=== PATIENT | male | born 1960 | race Caucasian/White ===

== ENCOUNTER → 2017-11-04 07:22 | Outpatient (CLI) | payer BC, SELFPAY ==
[2017-11-04 08:37] LABS: AST(SGOT) 37 U/L (15-37); Alanine Aminotransfer ALT/SGPT 91 U/L (16-61); Albumin, Serum 3.9 g/dL (3.2-5.0); Alkaline Phosphatase 52 U/L (45-117); Bilirubin, Direct 0.16 mg/dL (0.00-0.30); Cholesterol 135 mg/dL (200); Globulin 3.4 g/dL (2.2-4.2); High Density Lipoprotein 38 mg/dL; Protein, Total 7.3 g/dL (6.4-8.2); Triglycerides 155 mg/dL; Very Low Density Lipoprotein 31 mg/dL (5-40)
== END ==
PROVIDERS: Family Provider Family Medicine; PCP Family Medicine; Visit Provider Physician Assistant Medical
DX: E78.5 Hyperlipidemia, unspecified (principal); Z79.899 Other long term (current) drug therapy
CPT/HCPCS: 36415; 80061; 80076

== ENCOUNTER → 2017-12-13 11:07 | Outpatient (CLI) | payer BC, SELFPAY ==
[2017-12-13 12:24] LABS: Absolute Neutrophil Count 4.4 X10^3/uL (2.0-7.7); Basophil# 0.04 X10^3/uL; Basophil% 0.5 % (0-1); Eosinophil# 0.06 X10^3/uL; Eosinophils% 0.8 % (0-5); Hematocrit 45.6 % (40-54); Hemoglobin 16.2 g/dl (13.0-16.5); Lymphocyte % 32.4 % (19-41); Mean Corp Hgb Conc 35.5 g/gl (32-36); Mean Corpuscular Hgb 32.3 pg (27.0-32.0); Mean Platelet Vol. 10.5 fl (6.2-12.0); Monocyte# 0.71 X10^3/uL; Monocyte% 9.2 % (0-10); Neutrophil # 4.38 X10^3/uL (2.7-7.7); Neutrophil % 56.8 % (47-70); Platelet Count 205 K/mm3 (150-450); RBC Distribution Width CV 12.6 % (11.6-14.6); Red Blood Count 5.01 M/mm3 (4.6-6.2); White Blood Count 7.7 K/mm3 (4.4-11.0)
[2017-12-13 12:26] LABS: POSITIVE COUNT NO; POSITIVE DIFFERENTIAL NO; POSITIVE MORPHOLOGY NO
[2017-12-13 12:37] LABS: Anion Gap 3 (5-15); BUN 22 mg/dL (7-18); BUN/Creat Ratio 19.5 RATIO (10-20); Chloride 106 mmol/L (98-107); Creatinine, Serum 1.13 mg/dL (0.70-1.30); EST Glomerular Filtration Rate 71 mL/min (>60); Est Glom Filt Rate - Afr Amer 86 mL/min (>60); Glucose 106 mg/dL (74-106); Potassium 3.8 mmol/L (3.5-5.1); Sodium Level 138 mmol/L (136-145)
[2017-12-19 14:07] LABS: QNTFERON TB Ag Minus Nil Value 0.07 IU/mL (.); QNTFERON TB Ag Value 0.11 IU/mL (.); QNTFERON TB Mitogen Value > 10.00 IU/mL (.); QNTFERON TB Nil Value 0.04 IU/mL (.)
[2017-12-20 09:01] LABS: QNTIFERON TB Gold Negative (Negative)
== END ==
PROVIDERS: Family Provider Family Medicine; PCP Family Medicine; Visit Provider Physician Assistant
DX: L40.0 Psoriasis vulgaris (principal); D48.5 Neoplasm of uncertain behavior of skin; L57.0 Actinic keratosis; Z79.899 Other long term (current) drug therapy
CPT/HCPCS: 36415; 80048; 85025; 86480

== ENCOUNTER → 2018-06-12 08:44 | Outpatient (CLI) | payer BC, SELFPAY ==
[2018-06-12 10:06] LABS: Hematocrit 47.8 % (40-54); Hemoglobin 16.7 g/dl (13.0-16.5); Mean Corp Hgb Conc 34.9 g/gl (32-36); Mean Corpuscular Hgb 31.9 pg (27.0-32.0); Mean Corpuscular Volume 91.4 fL (80-94); Mean Platelet Vol. 9.9 fl (6.2-12.0); Platelet Count 208 K/mm3 (150-450); RBC Distribution Width CV 12.8 % (11.6-14.6); RBC Distribution Width SD 42.3 fl (35.1-43.9); Red Blood Count 5.23 M/mm3 (4.6-6.2); Scan Indicated on CBC? Y/N NO; White Blood Count 7.8 K/mm3 (4.4-11.0)
[2018-06-12 10:19] LABS: ALB/GLOB Ratio 1.1 RATIO (0.9-2.4); AST(SGOT) 42 U/L (15-37); Alanine Aminotransfer ALT/SGPT 124 U/L (16-61); Albumin, Serum 3.8 g/dL (3.2-5.0); Alkaline Phosphatase 53 U/L (45-117); Anion Gap 8 (5-15); BUN 19 mg/dL (7-18); BUN/Creat Ratio 17.9 RATIO (10-20); Calcium,Total 9.2 mg/dL (8.5-10.1); Chloride 105 mmol/L (98-107); Creatinine, Serum 1.06 mg/dL (0.70-1.30); EST Glomerular Filtration Rate 76 mL/min (>60); Est Glom Filt Rate - Afr Amer 92 mL/min (>60); Globulin 3.4 g/dL (2.2-4.2); Glucose 106 mg/dL (74-106); Potassium 4.2 mmol/L (3.5-5.1); Protein, Total 7.2 g/dL (6.4-8.2); Sodium Level 142 mmol/L (136-145)
--- OUTSIDE RECORDS SUMMARY | 2018-08-14 15:54 | XMS RPT_ITS ---
:1960 Author Organization OH[facility] Care Team Providers Name Role Phone CRISTIAN QUIROS, DR. LEHMAN Attending Unavailable JANINA QUIROS, DR. DARLYN Melchor Primary Care Unavailable Arlin Canela Attending Unavailable Arlin Canela Referring Unavailable Darlyn Rivas Primary Care Unavailable Leonie Laughlin Attending Unavailable Leonie Laughlin Referring Unavailable Darlyn Rivas Primary Care Unavailable Joshua Duarte Attending Unavailable Darlyn Rivas Referring Unavailable Darlyn Rivas Primary Care Unavailable Arlin Canela Attending Unavailable Arlin Canela Referring Unavailable Darlyn Rivas Primary Care Unavailable PROBLEMS PROBLEMS DATE TYPE CONDITION / CODE ATTENDING STATUS SOURCE 12/13/2017 Unknown L40.0 - Psoriasis Arlin Canela Active Danica vulgaris / Community L40.0(ICD-10) Hospital Repository 11/08/2017 Unknown E78.5 - Laughlin, Active Danica HyperlipidemiaLeonie Community unspecified / Hospital E78.5(ICD-10) Repository PROCEDURES PROCEDURES No Procedure Records FoundRESULTS RESULTS CBC-COMPLETE BLOOD CNT Collected: 06/12/2018 Status: F Source: DANICA NO DIFF 8:50 AM [facility] REPOSITORY TYPE CODE TESTS RESULT OUT OF RANGE REFERENCE UNITS LAB L100.1000 4.4-11.0 K/mm3 Normal WBC 7.8 LAB L100.1200 4.6-6.2 M/mm3 Normal RBC 5.23 LAB L100.1300 13.0-16.5 g/dl High HGB 16.7 LAB L100.1400 40-54 % Normal HCT 47.8 LAB L100.1500 80-94 fL Normal MCV 91.4 LAB L100.1600 27.0-32.0 pg Normal MCH 31.9 LAB L100.1700 32-36 g/gl Normal MCHC 34.9 LAB L100.1810 11.6-14.6 % Normal RDW CV 12.8 LAB L100.1820 35.1-43.9 fl Normal RDW SD 42.3 LAB L100.1900 150-450 K/mm3 Normal PLT 208 LAB L100.2000 6.2-12.0 fl Normal MPV 9.9 Performed By: #### L100.0500 #### [facility] [place], [address] COMPREHENSIVE METABOLIC Collected: 06/12/2018 Status: F Source: DANICA PROFIL 8:50 AM [facility] REPOSITORY TYPE CODE TESTS RESULT OUT OF RANGE REFERENCE UNITS LAB L501.0100 74-106 mg/dL Normal GLU 106 Result Comment: Fasting Glucose result from 100 to 125 mg/dL suggests IMPAIRED HOMEOSTASIS per A.D.A. criteria. Please note revised GLUCOSE reference range effective 2017. LAB L501.1000 7-18 mg/dL High BUN 19 LAB L501.1100 0.70-1.30 mg/dL Normal CREAT,SERUM 1.06 Result Comment: The validity of the calculated GFR AND GFRAA in patients over 70 years has not been determined. Clinical correlation is essential. LAB L501.1110 >60 mL/min Normal EST GFR 76 Result Comment: Non- GFR Calc LAB L501.1115 >60 mL/min Normal EST GFR - AA 92 Result Comment: GFR Calc LAB L501.1300 10-20 RATIO Normal BUN/CRE 17.9 LAB L501.1500 6.4-8.2 g/dL T Normal PROT 7.2 LAB L501.1800 3.2-5.0 g/dL Normal ALB 3.8 LAB L501.1950 2.2-4.2 g/dL Normal GLOB 3.4 LAB L501.2000 0.9-2.4 RATIO Normal A/G 1.1 LAB L501.2200 8.5-10.1 mg/dL CA Normal 9.2 LAB L501.4100 15-37 U/L High AST 42 LAB L501.4305 45-117 U/L Normal ALK P 53 LAB L501.4405 16-61 U/L High ALT 124 LAB L501.4600 0.20-1.00 mg/dL T Normal BILI 0.60 LAB L501.5300 136-145 mmol/L NA Normal 142 LAB L501.5600 3.5-5.1 mmol/L K Normal 4.2 LAB L501.5900 98-107 mmol/L CL Normal 105 LAB L501.6100 21.0-32.0 mmol/L Normal CO2 29.0 LAB L501.6200 5-15 Normal GAP 8 Performed By: #### L500.4050 #### [facility] [address] [place], [address] CBC W/DIFF, AUTOMATED Collected: 12/13/2017 Status: F Source: MARSHALL 11:12 AM [facility] REPOSITORY TYPE CODE TESTS RESULT OUT OF RANGE REFERENCE UNITS LAB L100.1000 4.4-11.0 K/mm3 Normal WBC 7.7 LAB L100.1200 4.6-6.2 M/mm3 Normal RBC 5.01 LAB L100.1300 13.0-16.5 g/dl Normal HGB 16.2 LAB L100.1400 40-54 % Normal HCT 45.6 LAB L100.1500 80-94 fL Normal MCV 91.0 LAB L100.1600 27.0-32.0 pg High MCH 32.3 LAB L100.1700 32-36 g/gl Normal MCHC 35.5 LAB L100.1810 11.6-14.6 % Normal RDW CV 12.6 LAB L100.1820 35.1-43.9 fl Normal RDW SD 41.0 LAB L100.1900 150-450 K/mm3 Normal PLT 205 LAB L100.2000 6.2-12.0 fl Normal MPV 10.5 LAB L100.2100 47-70 % Normal NEUT% 56.8 LAB L100.2200 19-41 % Normal LY% 32.4 LAB L100.2300 0-10 % Normal MONO% 9.2 LAB L100.2400 0-5 % Normal EO% 0.8 LAB L100.2500 0-1 % Normal BASO% 0.5 LAB L100.2550 0.0-0.9 % Normal IM GRAN % 0.300 Result Comment: IG% - Immature Granulocytes (promyelocytes, myelocytes and metamyelocytes) > 1% indicates that a LEFT SHIFT is Present. LAB L100.2620 2.0-7.7 X10 3/uL Normal Absolute Neut 4.4 LAB L100.2720 0.83-4.51 X10 3/ul Normal Absolute Lymph 2.50 Performed By: #### L100.0100 #### [facility] [address] [place] [address]. [place], [address] BASIC METABOLIC Collected: 12/13/2017 Status: F Source: MARSHALL PROFILE (BMP) 11:12 AM [facility] REPOSITORY TYPE CODE TESTS RESULT OUT OF RANGE REFERENCE UNITS LAB L501.0100 74-106 mg/dL Normal GLU 106 Result Comment: Fasting Glucose result from 100 to 125 mg/dL suggests IMPAIRED HOMEOSTASIS per A.D.A. criteria. Please note revised GLUCOSE reference range effective 2017. LAB L501.1000 7-18 mg/dL High BUN 22 LAB L501.1100 0.70-1.30 mg/dL Normal CREAT,SERUM 1.13 Result Comment: The validity of the calculated GFR AND GFRAA in patients over 70 years has not been determined. Clinical correlation is essential. LAB L501.1110 >60 mL/min Normal EST GFR 71 Result Comment: Non- GFR Calc LAB L501.1115 >60 mL/min Normal EST GFR - AA 86 Result Comment: GFR Calc LAB L501.1300 10-20 RATIO Normal BUN/CRE 19.5 LAB L501.2200 8.5-10.1 mg/dL CA Normal 9.0 LAB L501.5300 136-145 mmol/L NA Normal 138 LAB L501.5600 3.5-5.1 mmol/L K Normal 3.8 Result Comment: Slight Hemolysis, Result may be falsely increased. LAB L501.5900 98-107 mmol/L Normal CL 106 LAB L501.6100 21.0-32.0 mmol/L Normal CO2 29.0 LAB L501.6200 5-15 Low 3 GAP Performed By: #### L500.2500 #### [facility] [address] [place], [address] QUANTIFERON TB-GOLD Collected: 12/13/2017 Status: F Source: MARSHALL 11:12 AM [facility] REPOSITORY TYPE CODE TESTS RESULT OUT OF RANGE REFERENCE UNITS LAB L3400.7025 Negative Normal QFT Negative TB GOLD Result Comment: The specimen received for QuantiFERON testing was incubated by the ordering institution. Specific procedures outlined in our Directory of Services and in the package insert for the QuantiFERON Gold (In Tube) test must be followed to enable for proper stimulation of cells for the production of interferon gamma. LAB L3400.7035 . Normal QFT TB Comment POS CRIT Result Comment: To be considered positive a specimen should have a TB Ag minus Nil value greater than or equal to 0.35 IU/mL and in addition the TB Ag minus Nil value must be greater than or equal to 25% of the Nil value. There may be insufficient information in these values to differentiate between some negative and some indeterminate test values. LAB L3400.7045 . IU/mL Normal QFT TB AB 0.11 VALUE LAB L3400.7055 . IU/mL Normal QFT NIL VALUE 0.04 LAB L3400.7065 . IU/mL > Normal QFT MITOGEN 10.00 VERONA LAB L3400.7075 . IU/mL Normal QFT AG - NIL 0.07 LAB L3400.7085 . Normal QFT TB INTER Comment Result Comment: The QuantiFERON TB Gold (in Tube) assay is intended for use as an aid in the diagnosis of TB infection. Negative results suggest that there is no TB infection. In patients with high suspicion of exposure, a negative test should be repeated. A positive test indicates infection with Mycobacterium tuberculosis. Among individuals without tuberculosis infection, a positive test may be due to exposure to M. kansasii, M. szulgai or M. marinum. On the Internet, go to cdc.gov/tb for further details. Performed at: [facility] [address] [id number] Senior Front End Developer: Deon Enriquez PhD, Phone: [phone] Performed By: #### L3001.7002 #### [facility] (refer to report for specific site) refer to report for address and phone number CARDIOLOGY VISIT Observed: 11/15/2017 Status: F Source: MARSHALL REPORT 1:44 PM [facility] REPOSITORY [facility] [address] [place] [address] OFFICE VISIT Date of Service: 11/15/17 MR#: [id number] Acct: [id number] Name: DYLON HERNANDEZ Rep #: [id number] : 1960 Provider: Joshua Duarte MD Age/Sex: 57/M Location: [facility] Status: Signed HPI HPI Chief Complaint: Follow-up visit. Details: DYLON HERNANDEZ, is a 57 M who presents to the office today for a follow-up visit. Is a gentleman with a history of coronary disease status post angioplasty and stenting of the diagonal vessel remotely 13 years ago. He returns for routine follow-up visit he continues to do remarkably well denying any chest pain or shortness breath or paroxysmal nocturnal dyspnea. He has not had any pedal edema is been compliant with his medications. His last stress test was in 2013 and at that time he exercised to a high metabolic workload of 11.7 metabolic equivalents with no evidence of angina. He denies any neck arm or jaw discomfort suggest angina. His physical exam today demonstrates clear lung duron regular rate and rhythm and no pedal edema. Intake Vital Signs11/15/17 Height 5 ft 8 in 11/15/17 Weight: 229 lb 11/15/17 Body Mass Index (BMI) 34.8 11/15/17 Blood Pressure 130/70 Intake Visit Reasons: 1 Y FU (pt r/s from -) [employer] Required: No Is patient in pain?: No Allergies methotrexate Adverse Reaction (Intermediate, Verified 11/15/17 13:27) Nausea Medications aspirin 81 mg tablet,delayed release 81 mg PO QDAY 05/25/17 [History Confirmed 11/15/17] clopidogrel 75 mg tablet 75 mg PO DAILY #90 tab 05/25/17 [Rx Confirmed 11/15/17] esomeprazole magnesium 40 mg capsule,delayed release 40 mg PO DAILY #90 cap 05/25/17 [Rx Confirmed 11/15/17] hydrochlorothiazide 25 mg tablet 25 mg PO DAILY #90 tab 05/25/17 [Rx Confirmed 11/15/17] isosorbide mononitrate ER 60 mg tablet,extended release 24 hr 60 mg PO DAILY #90 tab 05/25/17 [Rx Confirmed 11/15/17] losartan 100 mg tablet 100 mg PO DAILY #90 tab 05/25/17 [Rx Confirmed 11/15/17] metoprolol succinate ER 100 mg tablet,extended release 24 hr 100 mg PO DAILY #90 tab 05/25/17 [Rx Confirmed 11/15/17] multivitamin tablet 1 tab PO QDAY 05/25/17 [History Confirmed 11/15/17] simvastatin 40 mg tablet 40 mg PO QPM #90 tab 05/25/17 [Rx Confirmed 11/15/17] folic acid 1 mg tablet 1 mg PO QDAY #90 tab 05/27/17 [Rx Confirmed 11/15/17] adalimumab 40 mg/0.8 mL subcutaneous syringe kit 40 mg SC .COMPLEX ml 11/15/17 [History Confirmed 11/15/17] nitroglycerin 0.4 mg sublingual tablet 0.4 mg SUBLINGUAL Q5- 15M PRN #25 tab 11/15/17 [Rx Confirmed 11/15/17] [facility] Medical History Atherosclerotic heart disease of [place] coronary artery without angina pectoris (Chronic 2004) Psoriatic arthropathy (Chronic) Psoriasis (Chronic) Hyperlipidemia (Chronic) Hypertension (Chronic) Surgical History Stented coronary artery (Chronic) Family History Father , AGe 57 of [place] CAD (coronary artery disease) Hypertension Myocardial infarction S/P CABG (coronary artery bypass graft) Mother Hypertension Uncle , Age 32 from [place] Myocardial infarction CAD (coronary artery disease) PAD (peripheral artery disease) Uncle , Age 39 Colon cancer Diabetes Hypertension Lung cancer Myocardial infarction Aunt CAD (coronary artery disease) S/P coronary artery stent placement Grandfather , Age 57 CAD (coronary artery disease) Diabetes Hypertension Myocardial infarction Grandfather , 53 Cerebral hemorrhage Hypertension Grandmother , Age 86 CVA (cerebral vascular accident) Grandmother , Age 75 Myocardial infarction Hypertension Sudden cardiac Sister Hypertension Thyroid disorder Sister Eczema IBS (irritable bowel syndrome) Migraines Social History Smoking Status: Former smoker ROS Const Const: Negative for fatigue, weakness, body ache, fever(s), headache(s), chills, frequent falls, night sweats, daytime sleepiness, difficulty sleeping, excessive sweating, weight gain, weight loss, increased appetite, poor appetite, anorexia or other Eyes Eyes: Negative for blind spots, loss of peripheral vision, transient loss of vision, blurry vision, change in vision, double vision, floaters, tunnel vision or other ENT ENT: Negative for headache(s), dizziness, hearing loss, tinnitus, Nosebleed/epistaxis, balance problems, post nasal drip, lip swelling, tongue swelling, bleeding gums, hoarseness, neck pain, dry mouth or other Cardio Chest Pain: No Palpitations: No Edema: None Muscle aches with walking: None Resp Respiratory: Negative for SOB with activity, SOB at rest, SOB orthopnea\SOB lying down, Coughing up blood/hemoptysis, chest congestion, pain on inspiration, snoring, stridor, wheezing, crackles, paroxysmal nocturnal dyspnea or other GI GI: Negative nausea, vomiting, heartburn, constipation, belching, bloating, cramping, vomiting blood/hematemesis, bright, red blood in stools, black,tarry stools, loose stools, Difficulty Swallowing or other : Negative for hematuria, frequent nighttime urination/ nocturia, erectile dysfunction or abnormal vaginal bleeding Musc Musc: Negative for balance problems, muscle aches/ myalgia, muscle weakness or joint pain Skin Skin: Negative redness, non-healing lesions, rash, unusual bruising, skin ulcer, wounds, jaundice or other Neuro Neuro: Negative for weakness, headache(s), frequent falls, blurry vision, double vision, dizziness, lightheadedness, near syncope, syncope, orthostatic symptoms, confusion, memory loss, restless legs, vertigo, seizures, lack of coordination or other Jhonatan Hematologic/Lymphatic: Negative for easy bleeding, easy bruising, enlarged lymph nodes or other Endo Endo: Negative for fatigue, excessive sweating, cold intolerance, heat intolerance, flushing, increased thirst/drinking, increased hunger, hair loss, hair growth or other Psych Psych: Negative for anxiety, depression, thoughts of harming anyone, thoughts of harming yourself, visual hallucinations, panic attacks or audible hallucinations Allergy Allergy/Immunology: Negative for lip swelling, Negative for tongue swelling, Negative for rash, Negative for throat swelling, Negative for hives Cardiology Exam Const Appearance: cooperative, healthy appearing, well developed, well groomed and no acute distress Nutritional Appearance: well nourished and average body habitus Orientation: alert, awake and oriented x3 Head Head: normal to inspection, normocephalic and atraumatic Ears: hearing grossly normal bilaterally and external ears normal Nose: external nose normal, nasal mucous membranes and turbinates normal, nares normal, septum normal, no nasal discharge Face and Sinus: face symmetric Mouth: oral mucosae normal, tongue normal, oropharynx normal and moist mucous membranes Teeth and gingiva: dentition normal Throat: posterior oropharynx normal, tonsils normal and uvula midline Eyes General: appearance normal, both eyes and all related structures Eyelids: eyelids normal Conjunctivae: conjunctivae normal Pupils: PERRL, normal by confrontation and accommodation normal EOM: EOM intact bilaterally Neck Neck: normal visual inspection, trachea midline and no JVD JVD: +5 Carotids: normal carotid upstroke and bounding pulses Chest Chest inspection: normal inspection of the chest, symmetric chest movement and normal respiratory effort Auscultation: Bilateral: Clear to Auscultation Cardio Palpation: normal PMI Rate: regular rate Rhythm: regular rhythm Heart sounds: S1 normal, S2 normal and normal, physiologic split S2; negative rub, gallop or murmur GI GI: normal to inspection, soft, no hepatosplenomegaly and bowel sounds present Neuro General: alert, awake, oriented x3, no focal sensory deficit, gait normal and moves all extremities Skin Skin: no rashes or lesions noted Extremities Pulses: Normal: Right Femoral Pulse, Left Femoral Pulse, Right Dorsalis Pedis Pulse, Left Dorsalis Pedis Pulse, Right Posterior Tibial Pulse, Left Posterior Tibial Pulse, Right Radial Pulse, Left Radial Pulse Lower Extremity Edema: None: Bilateral Musculoskel Musculoskeletal: No joint tenderness Psych Psychological: normal affect Assessment AND Plan 1. Atherosclerosis of [place] coronary artery of [place] heart without angina pectoris I25.10 PTCA and WOODROW to cx, dx of RCA 09/2004; 2.25X23 mini-vision stent placed in bifurcation of dx 10/2004; 1 month after that,11/30/04 angioplasty of the in-stent restenosis of the diagonal per Dr. Mikel Alfaro [facility] 11/30/2004 Plan He does have evidence of atherosclerotic cardiovascular disease status post stenting of the diagonal vessel. Overall he continues to do well my recommendation will be for us to follow him clinically. And how he does further recommendations will be made. 2. Essential hypertension I10 Plan His blood pressure appears to be under excellent control at this time we should continue him on the same medications without making any changes. 3. Pure hypercholesterolemia E78.00; E78.0 Plan He remains on his current lipid profile his most recent lipid profile was total cholesterol and 35 HDL 38 LDL 66. No changes will be made he will continue on the same. Thank you for allowing me to participate in the care of your patient. 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 transplanted heart: [place] heart Essential hypertension I10 Hypertension type: essential hypertension Pure hypercholesterolemia E78.00; E78.0 Hyperlipidemia type: pure hypercholesterolemia Coding Level of Care Code Off vis,est,level 3 Diagnoses Atherosclerosis of [place] coronary artery of [place] heart without angina pectoris I25.10 [place] vs. transplanted heart: [place] heart Essential hypertension I10 Hypertension type: essential hypertension Pure hypercholesterolemia E78.00; E78.0 Hyperlipidemia type: pure hypercholesterolemia 11/15/17 1344 <Electronically signed by Joshua Duarte MD> Date Joshua Everett Signature: Date (if applicable) CC: Darlyn Rivas MD LIVER PROFILE Collected: 11/04/2017 Status: F Source: DANICA 7:27 AM [facility] REPOSITORY Order Comment: Order Date: 11/17/16 Order Info: [id number] - *Hepatic Function Panel Order Info: [id number] - *Lipid Profile CC PCP Comments: 12 hours fasting, may have water. TYPE CODE TESTS RESULT OUT OF RANGE REFERENCE UNITS LAB L501.1500 6.4-8.2 g/dL Normal T PROT 7.3 LAB L501.1800 3.2-5.0 g/dL Normal ALB 3.9 LAB L501.1950 2.2-4.2 g/dL Normal GLOB 3.4 LAB L501.4100 15-37 U/L Normal AST 37 Result Comment: Slight Hemolysis, Result may be falsely increased. LAB L501.4305 45-117 U/L Normal ALK P 52 LAB L501.4405 16-61 U/L High ALT 91 LAB L501.4600 0.20-1.00 mg/dL Normal T BILI 0.60 LAB L501.4700 0.00-0.30 mg/dL Normal D BILI 0.16 Performed By: #### L500.3400 #### [facility] [address] [place], [address] LIPID PROFILE Collected: 11/04/2017 Status: F Source: DANICA 7:27 AM [facility] REPOSITORY Order Comment: Order Date: 11/17/16 Order Info: [id number] - *Hepatic Function Panel Order Info: [id number] - *Lipid Profile CC PCP Comments: 12 hours fasting, may have water. TYPE CODE TESTS RESULT OUT OF RANGE REFERENCE UNITS LAB L501.4900 200 mg/dL Normal CHOL 135 Result Comment: <200 mg/dL Desirable 200-240 mg/dL Borderline >240 mg/dL High Risk LAB L501.5000 mg/dL Normal TRIG 155 Result Comment: The drugs N-Acetylcysteine and Metamizole may falsely depress this assay. Serum Triglycerides Reference Interval Normal <150 mg/dL Borderline high 150 - 199 mg/dL High 200 - 499 mg/dL Very High > or = 500 mg/dL LAB L501.6400 mg/dL Low HDL 38 Result Comment: The drugs N-Acetylcysteine and Metamizole may falsely depress this assay. Reference Range HDL <40 mg/dL Low HDL Cholesterol HDL >or= 60 mg/dL High HDL Cholesterol LAB L501.6500 0-130 mg/dL Normal LDL 66 LAB L501.6600 5-40 mg/dL Normal VLDL 31 Performed By: #### L500.4100 #### [facility] [address] [place], [address] ALLERGIES ALLERGIES DATE TYPE / CODE NAME / CODE REACTION SEVERITY SOURCE 11/15/2017 Drug methotrexate/ Nausea MO [facility] Allergy/4160 [id number](RX Hospital 59803(SNOMED NORM) Repository CT) 10/27/2013 Drug No Known Unknown [facility] Allergy/4160 Allergies/F00 Hospital 68455(SNOMED 5517279(RXNOR Repository CT) M) ENCOUNTERS ENCOUNTERS ADMIT/DISCHARGE ACCOUNT NUMBER ADMITTING ENCOUNTER LOCATION SOURCE CLASS 06/12/2018 [id number] [facility] ding:MTLAB Repository 06/02/2018 [id number] Ambulatory BBuilding:[facility] Repository 12/13/2017 [id number] Ambulatory [facility] ding:MTLAB Repository 11/15/2017/11/16/19 [id number] Ambulatory BMSBuilding: [facility] Repository 11/04/2017 [id number] [facility] ding:LAB Repository PAYERS PAYERS ENCOUNTER GUARANTOR PAYER SUBSCRIBER SOURCE 06/12/2018 DYLON [id number] DWIGHT [facility] [place] Number: [id number] Hospital [address]Hfb: [phone]) [id number] Repository [phone] () Date:3365-34-07SR [address] [place] [address]AZ: 06/12/2018 Secondary NOT GIVENUNK [facility] Insurance:SELF PAY [facility] Number: Effective Repository Date:2018-06-12 06/02/2018 DYLON E Primary YDLON Beckman [facility] RUDYDOB: Insurance:ANTHEM BLUE RUDYDOB: [facility] [id number] Repository DWIGHT Number: [address] [place] [id number] [place], [place] [address]Eje: ([phone]) Date:2018-05-24 [id number]: () [id number] [phone] Name:O BOX ()Tel: ([phone]) [id number] [place] [address] [phone] () [id number]: 12/13/2017 DYLON E Primary DYLON Mishra [id number] DWIGHT Insurance:ANTHEMPolic RUDYDOB: [place] Number: [id number] Hospital [id number]: [phone]) [id number] Repository [phone] () Date:2461-59-79HM [address] [place] [address]BP: 12/13/2017 Secondary NOT GIVENUNK Danica Insurance:SELF PAY [facility] Number: Effective Repository Date:2017-12-13 11/15/2017 DYLON E Primary DYLON Beckman Danica [id number] DWIGHT Insurance:ANTHEMPolic RUDYDOB: [place] Number: [id number] Hospital [address]Bjq: [phone]) [id number] Repository [phone] () Date:4615-89-19[id number] [place] [address]UT: 11/15/2017 Secondary NOT GIVENUNK Danica Insurance:SELF PAY [facility] Number: Effective Repository Date:2017-09-30 11/04/2017 DYLON E Primary DYLON Mishra [id number] DWIGHT Insurance:ANTHEMPolic [facility]OB[facility] Number: [id number] Hospital [id number]: [phone]) [id number] Repository [phone] () Date:1642-37-58[address], [place] [address]VO: 11/04/2017 Secondary NOT GIVENYVES Mishra Insurance:SELF PAY [facility] Number: Effective Repository Date:2017-11-04
== END ==
PROVIDERS: Family Provider Family Medicine; PCP Family Medicine; Referring Provider Physician Assistant; Visit Provider Physician Assistant
DX: L82.1 Other seborrheic keratosis (principal); D22.5 Melanocytic nevi of trunk; L81.4 Other melanin hyperpigmentation; Z08 Encounter for follow-up examination after completed treatment for malignant neoplasm; D18.01 Hemangioma of skin and subcutaneous tissue; Z85.828 Personal history of other malignant neoplasm of skin
CPT/HCPCS: 36415; 80053; 85027

== ENCOUNTER → 2018-07-05 10:56 | Outpatient (CLI) | payer BC, SELFPAY ==
[2017-11-15 13:24] VITALS: BMI 34.8
[2018-07-05 13:13] LABS: ALB/GLOB Ratio 1.1 RATIO (0.9-2.4); AST(SGOT) 32 U/L (15-37); Alanine Aminotransfer ALT/SGPT 93 U/L (16-61); Albumin, Serum 3.8 g/dL (3.2-5.0); Alkaline Phosphatase 55 U/L (45-117); Anion Gap 9 (5-15); BUN 17 mg/dL (7-18); BUN/Creat Ratio 15.5 RATIO (10-20); Calcium,Total 9.1 mg/dL (8.5-10.1); Chloride 108 mmol/L (98-107); EST Glomerular Filtration Rate 73 mL/min (>60); Est Glom Filt Rate - Afr Amer 88 mL/min (>60); Globulin 3.4 g/dL (2.2-4.2); Glucose 103 mg/dL (74-106); Potassium 4.1 mmol/L (3.5-5.1); Protein, Total 7.2 g/dL (6.4-8.2); Sodium Level 143 mmol/L (136-145)
== END ==
PROVIDERS: Family Provider Family Medicine; PCP Family Medicine; Referring Provider Physician Assistant; Visit Provider Physician Assistant
DX: C44.519 Basal cell carcinoma of skin of other part of trunk (principal); C44.622 Squamous cell carcinoma of skin of right upper limb, including shoulder; L40.0 Psoriasis vulgaris
CPT/HCPCS: 36415; 80053

== ENCOUNTER → 2018-11-22 07:34 | Outpatient (CLI) | payer BC, SELFPAY ==
[2017-11-15 13:24] VITALS: BMI 34.8
[2018-11-22 09:03] LABS: AST(SGOT) 31 U/L (15-37); Alanine Aminotransfer ALT/SGPT 82 U/L (16-61); Albumin, Serum 3.9 g/dL (3.2-5.0); Alkaline Phosphatase 51 U/L (45-117); Cholesterol 146 mg/dL (200); Globulin 3.3 g/dL (2.2-4.2); High Density Lipoprotein 40 mg/dL; Protein, Total 7.2 g/dL (6.4-8.2); Triglycerides 199 mg/dL; Very Low Density Lipoprotein 40 mg/dL (5-40)
== END ==
PROVIDERS: Family Provider Family Medicine; PCP Family Medicine; Referring Provider Physician Assistant Medical; Visit Provider Physician Assistant Medical
DX: E78.5 Hyperlipidemia, unspecified (principal)
CPT/HCPCS: 36415; 80061; 80076

== ENCOUNTER → 2018-12-06 09:43 | Outpatient (CLI) | payer BC, SELFPAY ==
[2018-11-28 13:40] VITALS: BMI 35.4
[2018-12-06 12:31] LABS: ALB/GLOB Ratio 1.2 RATIO (0.9-2.4); AST(SGOT) 31 U/L (15-37); Alanine Aminotransfer ALT/SGPT 78 U/L (16-61); Albumin, Serum 3.7 g/dL (3.2-5.0); Alkaline Phosphatase 54 U/L (45-117); Anion Gap 7 (5-15); BUN 22 mg/dL (7-18); BUN/Creat Ratio 21.6 RATIO (10-20); Calcium,Total 8.8 mg/dL (8.5-10.1); Chloride 106 mmol/L (98-107); Creatinine, Serum 1.02 mg/dL (0.70-1.30); EST Glomerular Filtration Rate 79 mL/min (>60); Est Glom Filt Rate - Afr Amer 96 mL/min (>60); Globulin 3.2 g/dL (2.2-4.2); Glucose 131 mg/dL (74-106); Potassium 3.9 mmol/L (3.5-5.1); Protein, Total 6.9 g/dL (6.4-8.2); Sodium Level 140 mmol/L (136-145)
[2018-12-06 12:35] LABS: Absolute Lymphocyte Count 2.15 X10^3/uL (0.83-4.51); Absolute Neutrophil Count 4.9 X10^3/uL (2.0-7.7); Basophil# 0.04 X10^3/uL; Basophil% 0.5 % (0-1); Eosinophil# 0.07 X10^3/uL; Eosinophils% 0.9 % (0-5); Hematocrit 46.1 % (40-54); Hemoglobin 15.9 g/dL (13.0-16.5); Lymphocyte # 2.15 X10^3/ul (4.0); Lymphocyte % 27.8 % (19-41); Mean Corp Hgb Conc 34.5 g/dL (32-36); Mean Corpuscular Hgb 31.4 pg (27.0-32.0); Mean Corpuscular Volume 91.1 fL (80-94); Monocyte% 7.8 % (0-10); NRBC Flagged by Analyzer 0 % (0-5); Neutrophil # 4.86 X10^3/uL (2.7-7.7); Neutrophil % 62.7 % (47-70); Platelet Count 201 K/mm3 (150-450); RBC Distribution Width CV 12.6 % (11.6-14.6); RBC Distribution Width SD 41.2 fl (35.1-43.9); Red Blood Count 5.06 M/mm3 (4.6-6.2); White Blood Count 7.7 K/mm3 (4.4-11.0)
[2018-12-09 04:07] LABS: QNTFERON TB Mitogen Value > 10.00 IU/mL (.); QNTFERON TB Nil Value 0.03 IU/mL (.); QNTFERON TB1+ Ag Value 0.05 IU/mL (.); QNTFERON TB2+ Ag Value 0.03 IU/mL (.)
[2018-12-09 13:32] LABS: QNTIFERON TB Positive Criteria Negative (Negative)
== END ==
PROVIDERS: Family Provider Family Medicine; PCP Family Medicine; Referring Provider Physician Assistant; Visit Provider Physician Assistant
DX: L40.0 Psoriasis vulgaris (principal); L57.0 Actinic keratosis; Z79.899 Other long term (current) drug therapy
CPT/HCPCS: 36415; 80053; 85025; 86480

== ENCOUNTER → 2018-12-20 06:10 | Outpatient (CLI) | payer BC, SELFPAY ==
[2018-11-28 13:40] VITALS: BMI 35.4
--- NOTE | 2018-12-20 22:52 | STRESSREP ---
Stress Test Report Exercise myocardial perfusion stress test. 58-year-old man with a history of chest pain. Medications: Aspirin, Multivite, losartan, metoprolol, simvastatin. Stress protocol: Resting EKG demonstrates normal sinus rhythm with a rate of 78 bpm normal intervals are noted resting blood pressures 162/70 mmHg. The patient exercised according to regular Yoel protocol for a total duration of 9 minutes. The maximum heart rate attained was 137 bpm which was 85% of maximum predicted heart rate and maximum workload was 10.4 metabolic equivalents. The patient maintained sinus rhythm throughout the recording. At rest there were no ST or T wave changes noted suggest ischemia peak exercise nonspecific ST-T wave changes were noted. The resting blood pressure 162/70 mmHg with a peak blood pressure 194/72 mmHg. No clinical angina was noted patient however did experience mild throat tightness which dissipated on discontinuation of the exertion. Myocardial perfusion protocol. 14.6 mCi of technetium 99m sestamibi was injected at rest. The patient exercised according to regular Yoel protocol for 9 minutes. At peak exercise 44.8 mCi of technetium 99m sestamibi was injected stress images were obtained stress and rest images are reconstructed in comparing the short axis vertical and horizontal long axis. Gated images were also obtained Perfusion SPECT analysis: Review of the stress images demonstrate normal uptake of tracer noted in all areas of the myocardium. The resting images similar demonstrate normal uptake of tracer noted in all areas of the myocardium. No reversibility is noted suggest ischemia no previous infarct is noted. Gated SPECT analysis: The gated ejection fraction is noted to be 74%. Conclusion: Normal exercise myocardial perfusion stress test at a high workload. Good functional capacity. Preserved ejection fraction. Mild throat discomfort of questionable significance.
== END ==
PROVIDERS: Family Provider Family Medicine; PCP Family Medicine; Referring Provider Internal Medicine Cardiovascular Disease; Visit Provider Internal Medicine Cardiovascular Disease
DX: R07.9 Chest pain, unspecified (principal)
CPT/HCPCS: 78452; 93017; A9500; A4216

== ENCOUNTER → 2019-06-29 07:33 | Outpatient (CLI) | payer BC, SELFPAY ==
[2018-11-28 13:40] VITALS: BMI 35.4
[2019-06-29 08:46] LABS: AST(SGOT) 47 U/L (15-37); Alanine Aminotransfer ALT/SGPT 119 U/L (16-61); Alkaline Phosphatase 50 U/L (45-117); Bilirubin, Direct 0.14 mg/dL (0.00-0.30); Cholesterol 161 mg/dL (200); Globulin 3.4 g/dL (2.2-4.2); High Density Lipoprotein 42 mg/dL; Protein, Total 7.4 g/dL (6.4-8.2); Triglycerides 194 mg/dL; Very Low Density Lipoprotein 39 mg/dL (5-40)
== END ==
PROVIDERS: PCP Family Medicine; Referring Provider Physician Assistant Medical; Visit Provider Physician Assistant Medical
DX: E78.5 Hyperlipidemia, unspecified (principal); Z12.5 Encounter for screening for malignant neoplasm of prostate
CPT/HCPCS: 36415; 80061; 80076; 84153; G0103

== ENCOUNTER → 2019-12-10 07:51 | Outpatient (CLI) | payer BC, SELFPAY ==
[2019-07-04 09:24] VITALS: BMI 36.0
[2019-12-10 08:21] LABS: Absolute Lymphocyte Count 2.83 X10^3/uL (0.83-4.51); Absolute Neutrophil Count 4.3 X10^3/uL (2.0-7.7); Basophil# 0.05 X10^3/uL; Basophil% 0.6 % (0-1); Eosinophil# 0.06 X10^3/uL; Eosinophils% 0.7 % (0-5); Hematocrit 46.4 % (40-54); Hemoglobin 16.2 g/dL (13.0-16.5); Lymphocyte # 2.83 X10^3/ul (4.0); Lymphocyte % 35.2 % (19-41); Mean Corp Hgb Conc 34.9 g/dL (32-36); Mean Corpuscular Volume 91.5 fL (80-94); Mean Platelet Vol. 9.8 fl (6.2-12.0); Monocyte# 0.77 X10^3/uL; Monocyte% 9.6 % (0-10); NRBC Flagged by Analyzer 0 % (0-5); Neutrophil # 4.29 X10^3/uL (2.7-7.7); Neutrophil % 53.5 % (47-70); Platelet Count 198 K/mm3 (150-450); RBC Distribution Width CV 11.9 % (11.6-14.6); RBC Distribution Width SD 39.6 fl (35.1-43.9); Red Blood Count 5.07 M/mm3 (4.6-6.2)
[2019-12-10 08:43] LABS: Anion Gap 5 (5-15); BUN 24 mg/dL (7-18); BUN/Creat Ratio 22.6 RATIO (10-20); Calcium,Total 8.7 mg/dL (8.5-10.1); Chloride 108 mmol/L (98-107); Creatinine, Serum 1.06 mg/dL (0.70-1.30); EST Glomerular Filtration Rate 76 mL/min (>60); Est Glom Filt Rate - Afr Amer 92 mL/min (>60); Glucose 111 mg/dL (74-106); Potassium 3.9 mmol/L (3.5-5.1); Sodium Level 139 mmol/L (136-145)
[2019-12-10 08:55] LABS: AST(SGOT) 31 U/L (15-37); Alanine Aminotransfer ALT/SGPT 78 U/L (16-61); Albumin, Serum 3.9 g/dL (3.2-5.0); Alkaline Phosphatase 46 U/L (45-117); Bilirubin, Direct 0.14 mg/dL (0.00-0.30); Cholesterol 147 mg/dL (200); Globulin 3.3 g/dL (2.2-4.2); High Density Lipoprotein 42 mg/dL; Protein, Total 7.2 g/dL (6.4-8.2); Triglycerides 127 mg/dL; Very Low Density Lipoprotein 25 mg/dL (5-40)
[2019-12-13 07:07] LABS: QNTFERON TB Mitogen Value > 10.00 IU/mL (.); QNTFERON TB Nil Value 0.03 IU/mL (.); QNTFERON TB1+ Ag Value 0.05 IU/mL (.); QNTFERON TB2+ Ag Value 0.07 IU/mL (.)
[2019-12-13 16:14] LABS: QNTIFERON TB Positive Criteria Negative (Negative)
== END ==
PROVIDERS: Physician Assistant Medical; PCP Family Medicine; Referring Provider Physician Assistant; Visit Provider Physician Assistant
DX: L40.0 Psoriasis vulgaris (principal); E78.5 Hyperlipidemia, unspecified; D48.5 Neoplasm of uncertain behavior of skin; L53.8 Other specified erythematous conditions; L29.8 Other pruritus; L57.0 Actinic keratosis; Z79.899 Other long term (current) drug therapy
CPT/HCPCS: 36415; 80048; 80061; 80076; 85025; 86480

== ENCOUNTER 2020-08-08 11:32 | Outpatient (RCR) | payer BC, SELFPAY ==
[2020-01-31 12:21] VITALS: BMI 35.9
[2020-08-08] MEDS: COVID-19 VACC, MRNA(PFIZER)/PF 30 MCG/0.3 ML SYRINGE IM (08:43)
== END 2020-10-28 23:59 ==
LOC: IMMUN 11:32
PROVIDERS: PCP Family Medicine; Visit Provider Family Medicine
DX: Z23 Encounter for immunization (principal)
CPT/HCPCS: 0001A; 0002A; 91300

== ENCOUNTER → 2020-08-18 11:42 | Outpatient (CLI) | payer BC, SELFPAY ==
[2020-01-31 12:21] VITALS: BMI 35.9
[2020-08-18 14:55] LABS: Absolute Lymphocyte Count 2.38 X10^3/uL (0.83-4.51); Absolute Neutrophil Count 4.3 X10^3/uL (2.0-7.7); Basophil# 0.05 X10^3/uL; Basophil% 0.7 % (0-1); Eosinophil# 0.08 X10^3/uL; Eosinophils% 1.1 % (0-5); Hemoglobin 16.6 g/dL (13.0-16.5); Lymphocyte # 2.38 X10^3/ul (4.0); Mean Corp Hgb Conc 34.6 g/dL (32-36); Mean Corpuscular Hgb 31.6 pg (27.0-32.0); Mean Corpuscular Volume 91.4 fL (80-94); Mean Platelet Vol. 10.4 fl (6.2-12.0); Monocyte# 0.58 X10^3/uL; Monocyte% 7.8 % (0-10); NRBC Flagged by Analyzer 0 % (0-5); Neutrophil # 4.31 X10^3/uL (2.7-7.7); Platelet Count 220 K/mm3 (150-450); RBC Distribution Width CV 11.9 % (11.6-14.6); RBC Distribution Width SD 39.7 fl (35.1-43.9); Red Blood Count 5.25 M/mm3 (4.6-6.2); White Blood Count 7.4 K/mm3 (4.4-11.0)
[2020-08-18 15:26] LABS: Anion Gap 7 (5-15); BUN 17 mg/dL (7-18); BUN/Creat Ratio 15.2 RATIO (10-20); Chloride 106 mmol/L (98-107); Creatinine, Serum 1.12 mg/dL (0.70-1.30); EST Glomerular Filtration Rate 71 mL/min (>60); Est Glom Filt Rate - Afr Amer 86 mL/min (>60); Glucose 150 mg/dL (74-106); Potassium 3.8 mmol/L (3.5-5.1); Sodium Level 139 mmol/L (136-145)
== END ==
PROVIDERS: PCP Family Medicine; Referring Provider Physician Assistant; Visit Provider Physician Assistant
DX: L57.0 Actinic keratosis (principal); L40.0 Psoriasis vulgaris; M72.0 Palmar fascial fibromatosis [Dupuytren]; L57.8 Other skin changes due to chronic exposure to nonionizing radiation; D48.5 Neoplasm of uncertain behavior of skin; Z79.899 Other long term (current) drug therapy
CPT/HCPCS: 36415; 80048; 85025

== ENCOUNTER → 2021-02-06 08:54 | Outpatient (CLI) | payer BC, SELFPAY ==
[2021-02-06 10:46] LABS: PSA,Total - Annual Screen 1.28 ng/mL (0.00-4.00)
[2021-02-06 18:32] LABS: AST(SGOT) 37 U/L (15-37); Alanine Aminotransfer ALT/SGPT 99 U/L (16-61); Albumin, Serum 3.9 g/dL (3.2-5.0); Alkaline Phosphatase 53 U/L (45-117); Cholesterol 148 mg/dL (200); Globulin 3.6 g/dL (2.2-4.2); High Density Lipoprotein 41 mg/dL; Protein, Total 7.5 g/dL (6.4-8.2); Triglycerides 151 mg/dL; Very Low Density Lipoprotein 30 mg/dL (5-40)
== END ==
PROVIDERS: Physician Assistant Medical; PCP Family Medicine; Referring Provider Family Medicine; Visit Provider Family Medicine
DX: E78.5 Hyperlipidemia, unspecified (principal); Z12.5 Encounter for screening for malignant neoplasm of prostate
CPT/HCPCS: 36415; 80061; 80076; 84153; G0103

== ENCOUNTER → 2021-02-16 08:43 | Outpatient (CLI) | payer BC, SELFPAY ==
[2021-02-16 10:02] LABS: Absolute Lymphocyte Count 2.32 X10^3/uL (0.83-4.51); Basophil# 0.06 X10^3/uL; Basophil% 0.7 % (0-1); Eosinophil# 0.06 X10^3/uL; Eosinophils% 0.7 % (0-5); Hematocrit 47.1 % (40-54); Hemoglobin 16.4 g/dL (13.0-16.5); Lymphocyte # 2.32 X10^3/ul (0.83-4.51); Lymphocyte % 27.4 % (19-41); Mean Corp Hgb Conc 34.8 g/dL (32-36); Mean Corpuscular Hgb 31.8 pg (27.0-32.0); Mean Corpuscular Volume 91.5 fL (80-94); Mean Platelet Vol. 9.9 fl (6.2-12.0); Monocyte# 0.96 X10^3/uL; Monocyte% 11.3 % (0-10); NRBC Flagged by Analyzer 0 % (0-5); Neutrophil # 5.04 X10^3/uL (2.7-7.7); Neutrophil % 59.4 % (47-70); Platelet Count 236 K/mm3 (150-450); RBC Distribution Width SD 40.2 fl (35.1-43.9); Red Blood Count 5.15 M/mm3 (4.6-6.2); White Blood Count 8.5 K/mm3 (4.4-11.0)
[2021-02-16 10:28] LABS: AST(SGOT) 30 U/L (15-37); Alanine Aminotransfer ALT/SGPT 79 U/L (16-61); Albumin, Serum 3.8 g/dL (3.2-5.0); Alkaline Phosphatase 53 U/L (45-117); Anion Gap 9 (5-15); BUN 17 mg/dL (7-18); Calcium,Total 9.2 mg/dL (8.5-10.1); Chloride 103 mmol/L (98-107); EST Glomerular Filtration Rate 81 mL/min (>60); Est Glom Filt Rate - Afr Amer 98 mL/min (>60); Globulin 3.7 g/dL (2.2-4.2); Glucose 109 mg/dL (74-106); Potassium 3.9 mmol/L (3.5-5.1); Protein, Total 7.5 g/dL (6.4-8.2); Sodium Level 138 mmol/L (136-145)
[2021-02-20 06:08] LABS: QNTFERON TB Mitogen Value > 10.00 IU/mL (.); QNTFERON TB Nil Value 0 IU/mL (.); QNTFERON TB1+ Ag Value 0 IU/mL (.); QNTFERON TB2+ Ag Value 0.01 IU/mL (.)
[2021-02-20 10:16] LABS: QNTIFERON TB Positive Criteria Negative (Negative)
== END ==
PROVIDERS: PCP Family Medicine; Referring Provider Physician Assistant; Visit Provider Physician Assistant
DX: L40.0 Psoriasis vulgaris (principal); L82.1 Other seborrheic keratosis; D22.5 Melanocytic nevi of trunk; L81.4 Other melanin hyperpigmentation; D18.01 Hemangioma of skin and subcutaneous tissue; L57.8 Other skin changes due to chronic exposure to nonionizing radiation; L40.59 Other psoriatic arthropathy; L90.5 Scar conditions and fibrosis of skin; L57.0 Actinic keratosis; L60.3 Nail dystrophy; Z79.899 Other long term (current) drug therapy; Z71.89 Other specified counseling; Z08 Encounter for follow-up examination after completed treatment for malignant neoplasm; Z85.828 Personal history of other malignant neoplasm of skin
CPT/HCPCS: 36415; 80053; 85025; 86480

== ENCOUNTER → 2021-12-30 | Outpatient (CLI) | payer BC, SELFPAY ==
[2022-01-06 10:09] LABS: QNTFERON TB Mitogen Value > 10.00 IU/mL (.); QNTFERON TB Nil Value 0.16 IU/mL (.); QNTFERON TB1+ Ag Value 0.08 IU/mL (.); QNTFERON TB2+ Ag Value 0.09 IU/mL (.)
[2022-01-06 12:04] LABS: Hepatitis B Core Ab Total Negative (Negative); QNTIFERON TB Positive Criteria Negative (Negative)
== END | disposition home or self-care (01) ==
PROVIDERS: PCP Family Medicine; Referring Provider Physician Assistant; Visit Provider Physician Assistant
DX: L40.0 Psoriasis vulgaris (principal); L40.59 Other psoriatic arthropathy; L57.0 Actinic keratosis; Z79.899 Other long term (current) drug therapy
CPT/HCPCS: 36415; 86480; 86704

== ENCOUNTER → 2022-02-15 | Outpatient (CLI) | payer BC, SELFPAY ==
[2022-02-15 10:50] LABS: AST(SGOT) 23 U/L (15-37); Alanine Aminotransfer ALT/SGPT 48 U/L (16-61); Albumin, Serum 3.7 g/dL (3.2-5.0); Alkaline Phosphatase 47 U/L (45-117); Cholesterol 137 mg/dL (200); Globulin 3.4 g/dL (2.2-4.2); High Density Lipoprotein 46 mg/dL; Protein, Total 7.1 g/dL (6.4-8.2); Triglycerides 117 mg/dL; Very Low Density Lipoprotein 23 mg/dL (5-40)
== END | disposition home or self-care (01) ==
PROVIDERS: PCP Family Medicine; Referring Provider Internal Medicine Cardiovascular Disease; Visit Provider Internal Medicine Cardiovascular Disease
DX: I25.10 Atherosclerotic heart disease of native coronary artery without angina pectoris (principal); E78.5 Hyperlipidemia, unspecified
CPT/HCPCS: 36415; 80061; 80076

== ENCOUNTER → 2022-04-08 | Outpatient (CLI) | payer BC, SELFPAY ==
[2022-04-08 10:46] LABS: ALB/GLOB Ratio 1.1 RATIO (0.9-2.4); AST(SGOT) 36 U/L (15-37); Alanine Aminotransfer ALT/SGPT 71 U/L (16-61); Albumin, Serum 3.8 g/dL (3.2-5.0); Alkaline Phosphatase 50 U/L (45-117); Anion Gap 5 (5-15); BUN 18 mg/dL (7-18); BUN/Creat Ratio 19.4 RATIO (10-20); Calcium,Total 9.3 mg/dL (8.5-10.1); Chloride 107 mmol/L (98-107); Creatinine, Serum 0.93 mg/dL (0.70-1.30); EST Glomerular Filtration Rate 87 mL/min (>60); Est Glom Filt Rate - Afr Amer 106 mL/min (>60); Globulin 3.5 g/dL (2.2-4.2); Glucose 120 mg/dL (74-106); PSA,Total - Annual Screen 1.04 ng/mL (0.00-4.00); Protein, Total 7.3 g/dL (6.4-8.2); Sodium Level 140 mmol/L (136-145)
== END | disposition home or self-care (01) ==
LOC: MTLAB 08:41
PROVIDERS: PCP Family Medicine; Referring Provider Family Medicine; Visit Provider Family Medicine
DX: Z00.00 Encounter for general adult medical examination without abnormal findings (principal)
CPT/HCPCS: 36415; 80053; 84153; G0103

== ENCOUNTER → 2023-01-20 | Outpatient (CLI) | payer BC, SELFPAY ==
[2023-01-23 04:07] LABS: Hepatitis B Core Ab Total Negative (Negative); QNTFERON TB Mitogen Value > 10.00 IU/mL (.); QNTFERON TB Nil Value 0.04 IU/mL (.); QNTFERON TB1+ Ag Value 0.04 IU/mL (.); QNTFERON TB2+ Ag Value 0.05 IU/mL (.); QNTIFERON TB Positive Criteria Negative (Negative)
== END | disposition home or self-care (01) ==
PROVIDERS: PCP Family Medicine; Visit Provider Physician Assistant
DX: L40.0 Psoriasis vulgaris (principal); L57.8 Other skin changes due to chronic exposure to nonionizing radiation; Z79.899 Other long term (current) drug therapy
CPT/HCPCS: 36415; 86480; 86704

== ENCOUNTER → 2023-04-08 | Outpatient (CLI) | payer BC, SELFPAY ==
[2023-04-08 11:12] LABS: ALB/GLOB Ratio 1.1 RATIO (0.9-2.4); AST(SGOT) 41 U/L (15-37); Alanine Aminotransfer ALT/SGPT 98 U/L (16-61); Albumin, Serum 3.9 g/dL (3.2-5.0); Alkaline Phosphatase 56 U/L (45-117); Anion Gap 4 (5-15); BUN 23 mg/dL (7-18); BUN/Creat Ratio 23.8 RATIO (10-20); Calcium,Total 8.9 mg/dL (8.5-10.1); Chloride 105 mmol/L (98-107); Cholesterol 163 mg/dL (200); Creatinine, Serum 0.97 mg/dL (0.70-1.30); EST Glomerular Filtration Rate 83 mL/min (>60); Est Glom Filt Rate - Afr Amer 101 mL/min (>60); Globulin 3.7 g/dL (2.2-4.2); Glucose 113 mg/dL (74-106); High Density Lipoprotein 50 mg/dL; PSA,Total - Annual Screen 1.05 ng/mL (0.00-4.00); Potassium 4.4 mmol/L (3.5-5.1); Protein, Total 7.6 g/dL (6.4-8.2); Sodium Level 138 mmol/L (136-145); Thyroid Stim Hormone (TSH) 0.97 uIU/mL (0.358-3.74); Triglycerides 180 mg/dL; Very Low Density Lipoprotein 36 mg/dL (5-40)
== END | disposition home or self-care (01) ==
LOC: MTLAB 09:30
PROVIDERS: PCP Family Medicine; Referring Provider Family Medicine; Visit Provider Family Medicine
DX: Z00.00 Encounter for general adult medical examination without abnormal findings (principal)
CPT/HCPCS: 36415; 80053; 80061; 84153; 84403; 84443; G0103

== ENCOUNTER → 2023-06-03 | Outpatient (CLI) | payer BC, SELFPAY ==
--- OUTSIDE RECORDS SUMMARY | 2023-06-03 10:13 | XMS RPT_ITS | CCD ---
Author Name Unknown Address [address] [place] [address] Organization [facility] Care Team Providers Care [employer] Analyst Name Role Phone Tony Guzmán Unavailable Unavailable Tony Guzmán Unavailable Unavailable FALLON FOSTER Attending Unavailable DARLYN ROA Primary Care Unavailable GERARDO Laughlin, Leonie Garzon Unavailable [phone] Delicia NAPOLES, Hellen Ramirez Unavailable Unavailable Mira Dowd Unavailable Allergies Allergy Classification Reported Allergen(s) Allergy Type Date of Onset Reaction(s) Facility (5 sources) methotrexate drug allergy 08-10-2010 Nausea [facility] Work Phone: Medications Completed/Discontinued Medications Medication Drug Class(es) Dates Sig (Normalized) Sig (Original) adalimumab (5 sources) Tumor Necrosis Factor Rukhsana Start: 11-13-2015 HUMIRA 40 MG/0.8ML KIT injected every other week, ord by Dr. Jerome ADALIMUMAB Joshua Duarte MD aspirin 81 mg oral strip (20 sources) Platelet Aggregation Inhibitor, Nonsteroidal Anti-inflammatory Drug Start: 08-10-2010 take 1 tablet by mouth once daily ASPIRIN 325 MG TABS One tablet by mouth daily ASPIRIN [id number] Kamilah Pretty Problems Active Problems Problem Classification Problem Date Documented Da te Episodic/Chronic Coronary atherosclerosis and other heart disease (20 sources) Coronary arteriosclerosis; 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: [Atherosclerotic heart disease of [place] coronary artery without angina pectoris] Onset: 08-10-2010 Resolved: 05-07-2016 08-10-2010 Chronic Disorders of lipid metabolism (5 sources) Hyperlipidemia; 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: [Hyperlipidemia, unspecified] Onset: 08-10-2010 08-10-2010 Chronic Essential hypertension (5 sources) Hypertensive disorder; 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: [Essential (primary) hypertension] Onset: 08-10-2010 08-10-2010 Chronic Other nutritional; endocrine; and metabolic disorders (5 sources) Body mass index (BMI) 33.0-33.9, adult; 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: [Body mass index (BMI) 33.0-33.9, adult] Onset: 11-15-2013 11-15-2013 Chronic Unclassified (4 sources) Placement of stent in coronary artery ; 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: [Presence of coronary angioplasty implant and graft] Onset: 08-10-2010 05-07-2016 Unclassified (3 sources) Long-term drug therapy; 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] Onset: 08-10-2010 08-10-2010 Past or Other Problems Problem Classification Problem Date Documented Da te Episodic/Chronic Coronary atherosclerosis and other heart disease (5 sources) Coronary angioplasty status; 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: [Coronary angioplasty status] Onset: 08-10-2010 08-10-2010 Episodic Nonspecific chest pain (20 sources) Chest pain, unspecified; 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: [Precordial pain] Onset: 08-10-2010 Resolved: 05-07-2016 05-07-2016 Episodic Other aftercare (2 sources) Other senior care (current) drug therapy; 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] Onset: 08-10-2010 08-10-2010 Episodic Other screening for suspected conditions (not mental disorders or infectious disease) (10 sources) Abnormal result of cardiovascular function study, unspecified; 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: [Abnormal result of cardiovascular function study, unspecified] Onset: 08-10-2010 Resolved: 05-07-2016 08-10-2010 Episodic Residual codes; unclassified (18 sources) Family history of ischemic heart disease; 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: [Family history of stroke] Onset: 08-10-2010 Resolved: 05-07-2016 08-10-2010 Episodic Residual codes; unclassified (6 sources) FH: Hypertension; 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: [Family history of ischemic heart disease and other diseases of the circulatory system] Resolved: 05-07-2016 11-15-2013 Episodic Residual codes; unclassified (6 sources) Family history of stroke; 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: [Family history of stroke] Resolved: 05-07-2016 05-20-2014 Episodic Results Test Name Value Interpretation Reference Range Facil ity Vital Signs Date Time Vital Sign Value Performing Clinician Faci lity 06-22-2017 13:43-0400 BMI (Body Mass Index) 33.8 kg/m2 [facility] Work Phone: 11-11-2016 13:43-0400 BP Diastolic 70 mm[Hg] [facility] Work Phone: 11-11-2016 13:43-0400 BP Systolic 120 mm[Hg] [facility] Work Phone: 11-11-2016 13:43-0400 Height 172.72 cm [facility] Work Phone: 11-11-2016 13:43-0400 Pulse (Heart Rate) 88 /min [facility] Work Phone: 11-11-2016 13:43-0400 Respiratory Rate 20 /min [facility] Work Phone: 11-11-2016 13:43-0400 Weight 100.84 kg [facility] Work Phone: 05-07-2016 09:51-0500 BMI (Body Mass Index) 34.51 kg/m2 Leonie Laughlin PA-C [facility] Work Phone: 05-07-2016 09:51-0500 BP Diastolic 60 mm[Hg] Leonie Laughlin PA-C [facility] Work Phone: 05-07-2016 09:51-0500 BP Systolic 122 mm[Hg] Leonie Laughlin PA-C [facility] Work Phone: 05-07-2016 09:51-0500 BSA (Body Surface Area) 2.16 m2 Leonie Laughlin PA-C [facility] Work Phone: 05-07-2016 09:51-0500 Height 172.72 cm Leonie Laughlin PA-C [facility] Work Phone: 05-07-2016 09:51-0500 Pulse (Heart Rate) 84 /min Leonie Laughlin PA-C [facility] Work Phone: 05-07-2016 09:51-0500 Respiratory Rate 18 /min Leonie Laughlin PA-C [facility] Work Phone: 05-07-2016 09:51-0500 Weight 102.97 kg Leonie Laughlin PA-C [facility] Work Phone: 05-05-2015 11:13-0500 Heart rate 82 /min Leonie Laughlin PA-C [facility] Work Phone: Encounters Encounter Date Encounter Type Care Provider Facility Start: 06-26-2018 End: 06-26-2018 Patient encounter procedure FALLON FOSTER Facility:B Procedures Date Procedure Procedure Detail Performing Clinician Start: 11-11-2016 End: 11-15-2016 LIVIA Duarte MD Start: 11-11-2016 End: 11-15-2016 Follow Up Appt 1 year Joshua Duarte MD Start: 11-01-2016 End: 11-09-2016 *Hepatic Function Panel Leonie lopez PA-C Work Phone: Start: 11-01-2016 End: 11-09-2016 Lipid panel [AGGREGATE] Leonie lopez PA-C Work Phone: Start: 05-07-2016 End: 05-07-2016 Dietary management education, guidance, and counseling Leonie Laughlin PA-C Start: 05-07-2016 End: 05-07-2016 Follow Up Appt 6 months Ryann Pisano Start: 05-07-2016 End: 05-07-2016 LUCITA Duarte MD Start: 11-13-2015 End: 11-13-2015 Follow Up Appt 6 months Ryann Pisano Start: 11-13-2015 End: 11-13-2015 LUCITA Duarte MD Start: 11-03-2015 End: 05-03-2016 *Hepatic Function Panel Leonie lopez PA-C Work Phone: Start: 11-03-2015 End: 05-03-2016 Lipid panel [AGGREGATE] Leonie lopez PA-C Work Phone: Start: 05-05-2015 End: 05-05-2015 MONOTYPE CASTER Leonie Laughlin PA-C Work Phone: Start: 05-05-2015 End: 05-05-2015 Electrocardiogram, complete Leonie Martin PA-C Work Phone: Start: 05-05-2015 End: 05-05-2015 Follow Up Appt 6 months Leonie lopez PA-C Work Phone: Start: 05-01-2015 End: 05-01-2015 *Hepatic Function Panel Ryann Pisano Start: 05-01-2015 End: 05-01-2015 Lipid panel [AGGREGATE] Ryann Pisano Start: 11-28-2014 End: 11-29-2014 Documentation of current medications Joshua Duarte MD Start: 11-28-2014 End: 11-28-2014 Follow Up Appt 6 months Ryann Pisano Start: 11-28-2014 End: 11-28-2014 MMM Joshua Duarte MD Start: 11-18-2014 End: 11-18-2014 *Hepatic Function Panel Leonie lopez PA-C Work Phone: Start: 11-18-2014 End: 11-18-2014 Lipid panel [AGGREGATE] Leonie lopez PA-C Work Phone: Start: 05-20-2014 End: 05-20-2014 MONOTYPE CASTER Leonie Laughlin PA-C Work Phone: Start: 05-20-2014 End: 05-20-2014 Follow Up Appt 6 months Leonie lopez PA-C Work Phone: Start: 04-22-2014 End: 05-15-2014 *Hepatic Function Panel Ryann Pisano Start: 04-22-2014 End: 05-15-2014 Lipid panel [AGGREGATE] Ryann Pisano Start: 11-15-2013 End: 11-15-2013 Follow Up Appt 6 months Ryann Pisano Start: 11-15-2013 End: 11-15-2013 [facility] Joshua Duarte MD Start: 10-21-2013 End: 11-14-2013 *Hepatic Function Panel Leonie lopez PA-C Work Phone: Start: 10-21-2013 End: 11-14-2013 Lipid panel [AGGREGATE] Leonie lopez PA-C Work Phone: Start: 05-11-2013 End: 05-17-2013 *Hepatic Function Panel Leonie lopez PA-C Work Phone: Start: 05-11-2013 End: 05-11-2013 MONOTYPE CASTER Leonie Laughlin PA-C Work Phone: Start: 05-11-2013 End: 05-11-2013 Follow Up Appt 6 months Leonie lopez PA-C Work Phone: Start: 05-11-2013 End: 05-17-2013 Lipid panel [AGGREGATE] Leonie lopez PA-C Work Phone: Start: 11-21-2012 End: 05-01-2013 Echocardiography Joshua Duarte MD Start: 11-21-2012 End: 11-21-2012 Follow Up Appt 6 months Ryann Pisano Start: 11-21-2012 End: 11-21-2012 MMM Joshua Duarte MD Start: 11-21-2012 End: 12-07-2012 Nuclear stress test -exercise Joshua Duarte MD Start: 10-23-2012 End: 11-15-2012 *Hepatic Function Panel Ryann Pisano Start: 10-23-2012 End: 11-15-2012 Lipid panel [AGGREGATE] Ryann Pisano Start: 03-22-2012 End: 03-22-2012 Follow Up Appt 6 months Ryann Pisano Start: 10-20-2011 End: 02-02-2012 *Hepatic Function Panel Ryann Pisano Start: 10-20-2011 End: 10-20-2011 Follow Up Appt 6 months Ryann Pisano Start: 04-07-2011 End: 04-07-2011 Follow Up Appt 6 months Ryann Pisano Start: 08-10-2010 Placement of stent in coronary artery Status post cardiac stent placement Leonie Laughlin PA-C Plan of Treatment Date Care Activity Detail Author Start: 11-10-2017 End: 11-10-2017 Appointment Appointment [facility] Work Phone: Start: 05-11-2017 End: 11-17-2016 *Hepatic Function Panel *Hepatic Function Panel [facility] Work Phone: Start: 05-11-2017 End: 11-17-2016 Lipid panel [AGGREGATE] *Lipid Profile CC PCP [facility] Work Phone: Start: 11-11-2016 End: 11-11-2016 Appointment Appointment [facility] Work Phone: Start: 11-11-2016 End: 11-15-2016 MONOTYPE CASTER MONOTYPE CASTER [facility] Work Phone: Start: 11-11-2016 End: 11-15-2016 Follow Up Appt 1 year Follow Up Appt 1 year [facility] Work Phone: Start: 11-01-2016 End: 11-09-2016 *Hepatic Function Panel *Hepatic Function Panel [facility] Work Phone: Start: 11-01-2016 End: 11-09-2016 Lipid panel [AGGREGATE] *Lipid Profile CC PCP [facility] Work Phone: Start: 05-07-2016 End: 05-07-2016 Follow Up Appt 6 months Follow Up Appt 6 months [facility] Work Phone: Start: 05-07-2016 End: 05-07-2016 MMM MMM [facility] Work Phone: Start: 11-13-2015 End: 11-13-2015 Follow Up Appt 6 months Follow Up Appt 6 months [facility] Work Phone: Start: 11-13-2015 End: 11-13-2015 MMM MMM [facility] Work Phone: Start: 11-03-2015 End: 05-03-2016 *Hepatic Function Panel *Hepatic Function Panel [facility] Work Phone: Start: 11-03-2015 End: 05-03-2016 Lipid panel [AGGREGATE] *Lipid Profile CC PCP [facility] Work Phone: Start: 05-20-2015 End: 05-01-2015 *Hepatic Function Panel *Hepatic Function Panel [facility] Work Phone: Start: 05-20-2015 End: 05-01-2015 Lipid panel [AGGREGATE] *Lipid Profile CC PCP [facility] Work Phone: Start: 05-05-2015 End: 05-05-2015 MONOTYPE CASTER MONOTYPE CASTER [facility] Work Phone: Start: 05-05-2015 End: 05-05-2015 Electrocardiogram, complete EKG (In office) [facility] Work Phone: Start: 05-05-2015 End: 05-05-2015 Follow Up Appt 6 months Follow Up Appt 6 months [facility] Work Phone: Start: 11-28-2014 End: 11-28-2014 Follow Up Appt 6 months Follow Up Appt 6 months [facility] Work Phone: Start: 11-28-2014 End: 11-28-2014 MMM MMM [facility] Work Phone: Start: 11-18-2014 End: 11-18-2014 *Hepatic Function Panel *Hepatic Function Panel [facility] Work Phone: Start: 11-18-2014 End: 11-18-2014 Lipid panel [AGGREGATE] *Lipid Profile CC PCP [facility] Work Phone: Start: 05-20-2014 End: 05-20-2014 MONOTYPE CASTER MONOTYPE CASTER [facility] Work Phone: Start: 05-20-2014 End: 05-20-2014 Follow Up Appt 6 months Follow Up Appt 6 months [facility] Work Phone: Start: 04-22-2014 End: 05-15-2014 *Hepatic Function Panel *Hepatic Function Panel [facility] Work Phone: Start: 04-22-2014 End: 05-15-2014 Lipid panel [AGGREGATE] *Lipid Profile CC PCP [facility] Work Phone: Start: 11-15-2013 End: 11-15-2013 Follow Up Appt 6 months Follow Up Appt 6 months [facility] Work Phone: Start: 11-15-2013 End: 11-15-2013 MMM MMM [facility] Work Phone: Start: 10-21-2013 End: 11-14-2013 *Hepatic Function Panel *Hepatic Function Panel [facility] Work Phone: Start: 10-21-2013 End: 11-14-2013 Lipid panel [AGGREGATE] *Lipid Profile CC PCP [facility] Work Phone: Start: 05-11-2013 End: 05-17-2013 *Hepatic Function Panel *Hepatic Function Panel [facility] Work Phone: Start: 05-11-2013 End: 05-11-2013 MONOTYPE CASTER MONOTYPE CASTER [facility] Work Phone: Start: 05-11-2013 End: 05-11-2013 Follow Up Appt 6 months Follow Up Appt 6 months [facility] Work Phone: Start: 05-11-2013 End: 05-17-2013 Lipid panel [AGGREGATE] *Lipid Profile CC PCP [facility] Work Phone: Start: 11-21-2012 End: 11-21-2012 Echocardiography Echocardiogram (complete) [facility] Work Phone: Start: 11-21-2012 End: 11-21-2012 Follow Up Appt 6 months Follow Up Appt 6 months [facility] Work Phone: Start: 11-21-2012 End: 11-21-2012 MMM MMM [facility] Work Phone: Start: 11-21-2012 End: 11-21-2012 Nuclear stress test -exercise Nuclear stress test -exercise [facility] Work Phone: Start: 10-23-2012 End: 11-15-2012 *Hepatic Function Panel *Hepatic Function Panel [facility] Work Phone: Start: 10-23-2012 End: 11-15-2012 Lipid panel [AGGREGATE] *Lipid Profile CC PCP [facility] Work Phone: Start: 03-22-2012 End: 03-22-2012 Follow Up Appt 6 months Follow Up Appt 6 months [facility] Work Phone: Start: 10-20-2011 End: 02-02-2012 *Hepatic Function Panel *Hepatic Function Panel [facility] Work Phone: Start: 10-20-2011 End: 10-20-2011 Follow Up Appt 6 months Follow Up Appt 6 months [facility] Work Phone: Start: 04-07-2011 End: 04-07-2011 Follow Up Appt 6 months Follow Up Appt 6 months [facility] Work Phone: Patient Education [facility] Work Phone: Payers Date Payer Category Payer Unknown [id number] 1960 Unknown [id number] Summary Purpose Family History No Family History Records Found Advance Directives No Advanced Directives Records Found Additional Source Comments (unrecognized sect ion and content) No Status Records Found INFORMATION SOURCE (unrecogn ized section and content) FOR RECORDS PERTAINING TO PATIENTS WHO ARE OR HAVE BEEN ENROLLED IN A CHEMICAL DEPENDENCY/SUBSTANCEABUSE PROGRAM, SOME INFORMATION MAY BE OMITTED. This clinical summary was aggregated from multiple sources. Caution should be exercised in using it in the provision of clinical care. This summary normalizes information from multiple sources, and as a consequence, information in this document may materially change the coding, format and clinical context of patient data. In addition, data may be omitted in some cases. CLINICAL DECISIONS SHOULD BE BASED ON THE PRIMARY CLINICAL RECORDS. [employer] provides no warranty or guarantee of the accuracy or completeness of information in this document.
[2023-06-03 12:54] LABS: AST(SGOT) 37 U/L (15-37); Alanine Aminotransfer ALT/SGPT 88 U/L (16-61); Albumin, Serum 3.8 g/dL (3.2-5.0); Alkaline Phosphatase 56 U/L (45-117); Cholesterol 155 mg/dL (200); Globulin 3.4 g/dL (2.2-4.2); High Density Lipoprotein 44 mg/dL; Protein, Total 7.2 g/dL (6.4-8.2); Triglycerides 145 mg/dL; Very Low Density Lipoprotein 29 mg/dL (5-40)
== END | disposition home or self-care (01) ==
PROVIDERS: PCP Family Medicine; Referring Provider Internal Medicine Cardiovascular Disease; Visit Provider Internal Medicine Cardiovascular Disease
DX: E78.00 Pure hypercholesterolemia, unspecified (principal); I25.118 Atherosclerotic heart disease of native coronary artery with other forms of angina pectoris; I10 Essential (primary) hypertension
CPT/HCPCS: 36415; 80061; 80076

== ENCOUNTER → 2023-12-23 | Outpatient (CLI) | payer BC, SELFPAY ==
[2023-12-28 09:09] LABS: QNTFERON TB Mitogen Value > 10.00 IU/mL (.); QNTFERON TB Nil Value 0.08 IU/mL (.); QNTFERON TB1+ Ag Value 0.05 IU/mL (.); QNTFERON TB2+ Ag Value 0.05 IU/mL (.); QNTIFERON TB Positive Criteria Negative (Negative)
== END | disposition home or self-care (01) ==
LOC: MTLAB 09:54
PROVIDERS: PCP Family Medicine; Referring Provider Dermatology; Visit Provider Dermatology
DX: L40.0 Psoriasis vulgaris (principal)
CPT/HCPCS: 36415; 86480

== ENCOUNTER → 2024-04-27 | Outpatient (CLI) | payer BC, SELFPAY ==
[2024-04-27 10:46] LABS: ALB/GLOB Ratio 1.3 RATIO (0.9-2.4); AST(SGOT) 57 U/L (15-37); Alanine Aminotransfer ALT/SGPT 140 U/L (16-61); Albumin, Serum 3.9 g/dL (3.2-5.0); Alkaline Phosphatase 47 U/L (45-117); Anion Gap 9 (5-15); BUN 23 mg/dL (7-18); BUN/Creat Ratio 21.5 RATIO (10-20); Bilirubin, Direct 0.16 mg/dL (0.00-0.30); Calcium,Total 9.1 mg/dL (8.5-10.1); Chloride 108 mmol/L (98-107); Cholesterol 160 mg/dL (200); Creatinine, Serum 1.07 mg/dL (0.70-1.30); EST Glomerular Filtration Rate 74 mL/min (>60); Est Glom Filt Rate - Afr Amer 89 mL/min (>60); Globulin 3.1 g/dL (2.2-4.2); Glucose 128 mg/dL (74-106); High Density Lipoprotein 43 mg/dL; PSA,Total - Annual Screen 2.23 ng/mL (0.00-4.00); Potassium 4.1 mmol/L (3.5-5.1); Sodium Level 139 mmol/L (136-145); Triglycerides 187 mg/dL; Very Low Density Lipoprotein 37 mg/dL (5-40)
== END | disposition home or self-care (01) ==
PROVIDERS: Internal Medicine Cardiovascular Disease; PCP Family Medicine; Referring Provider Family Medicine; Visit Provider Family Medicine
DX: Z00.00 Encounter for general adult medical examination without abnormal findings (principal); I25.10 Atherosclerotic heart disease of native coronary artery without angina pectoris
CPT/HCPCS: 36415; 80053; 80061; 82248; 84153; G0103

== ENCOUNTER → 2024-07-31 | Outpatient (CLI) | payer BC, SELFPAY ==
--- NOTE | 2024-07-31 13:52 | STRESSREP_ITS ---
Stress Test Report Date: 07/31/2024 Procedure: Exercise tolerance test/imaging study Indications: Chest pain, CAD Consent: Per the patient Procedure: The patient exercised on a Yoel protocol for 8 minutes achieving a peak heart rate of 151 bpm (96% predicted maximal heart rate) with a peak blood pressure 158/78 mmHg and a peak MET capacity of 10.4 METs. The baseline ECG demonstrated normal sinus rhythm. The peak exercise ECG demonstrated no significant ischemic changes. EKG during recovery revealed no significant ischemic changes [There were no cardiac dysrhythmias pretest, during exercise, or recovery]. The functional capacity was considered excellent for age. There was [no complaint of chest discomfort during exercise or recovery]. The examination was discontinued secondary to achieving target heart rate. Impression: 1. Technically adequate (percent predicted maximal heart rate greater than 85%) exercise tolerance test 2. Stress test is negative for exercise-induced EKG changes of ischemia 3. The test test is negative for exercise-induced chest pain 4. Functional capacity is excellent for age 5. Nuclear images pending Myocardial perfusion imaging study: Technique: The patient was injected with 14.7 mCi of technetium 99m Cardiolite and subsequently rest SPECT Cardiolite nuclear imaging was obtained in the horizontal long, vertical long, and short axis views. The patient exercised on a Yoel protocol. Please see above for details. The patient was injected with 45 mCi of technetium 99m Cardiolite and subsequently stress SPECT Cardiolite nuclear imaging was obtained in the horizontal long, vertical long, and short axis views. A gated Cardiolite study at peak stress was obtained. Interpretation: Rest and stress SPECT Cardiolite nuclear imaging status post realignment, normalization, and attenuation correction, demonstrates no evidence of significant ischemia or infarction. The gated Cardiolite study demonstrates no significant regional wall motion abnormalities. The reported LVEF is greater than 70%. Impression: 1. There is no evidence of significant ischemia or infarction. 2. The gated Cardiolite study reports an LVEF of greater than 70%. This note was generated with [employer] software. It may contain incorrect words, spelling, and punctuation that were not noted in checking the note before signing.
== END | disposition home or self-care (01) ==
PROVIDERS: PCP Family Medicine; Referring Provider Nurse Practitioner Family; Visit Provider Nurse Practitioner Family
DX: R07.9 Chest pain, unspecified (principal); I25.10 Atherosclerotic heart disease of native coronary artery without angina pectoris; Z95.5 Presence of coronary angioplasty implant and graft; I10 Essential (primary) hypertension; E78.00 Pure hypercholesterolemia, unspecified
CPT/HCPCS: 78452; 93017; A9500; A4216

== ENCOUNTER → 2024-08-03 | Outpatient (CLI) | payer BC, SELFPAY ==
[2024-08-04 21:12] LABS: QNTFERON TB Mitogen Value > 10.00 IU/mL (.); QNTFERON TB Nil Value 0.21 IU/mL (.); QNTFERON TB1+ Ag Value 0.19 IU/mL (.); QNTFERON TB2+ Ag Value 0.13 IU/mL (.); QNTIFERON TB Positive Criteria Negative (Negative)
== END | disposition home or self-care (01) ==
LOC: MTLAB 11:14
PROVIDERS: PCP Family Medicine; Referring Provider Dermatology; Visit Provider Dermatology
DX: L40.0 Psoriasis vulgaris (principal); D48.5 Neoplasm of uncertain behavior of skin; Z79.899 Other long term (current) drug therapy
CPT/HCPCS: 36415; 86480

== ENCOUNTER → 2024-08-22 | Outpatient (CLI) | payer MEDICARE, OTHER, SELFPAY ==
--- NOTE | 2024-08-22 08:35 | RAD_ITS ---
EXAM: XR Right Hip With Pelvis When Performed, 2 or 3 Views CLINICAL INDICATION: HIP PAIN TECHNIQUE: Two or three views of the right hip with pelvis when performed. COMPARISON: No relevant prior studies available. FINDINGS: BONES/JOINTS: Moderate degenerative change of the right hip joint. No acute fracture. No dislocation. SOFT TISSUES: Unremarkable. RAD/Hips B/L min 2 views w/ Pelvis IMPRESSION: Degenerative changes as above. Reading Location: [facility]
== END | disposition home or self-care (01) ==
LOC: MTRAD 08:32
PROVIDERS: PCP Family Medicine; Referring Provider Family Medicine; Visit Provider Family Medicine
DX: M25.551 Pain in right hip (principal)
CPT/HCPCS: 73521

== ENCOUNTER → 2024-10-12 | Outpatient (CLI) | payer MEDICARE, OTHER, SELFPAY ==
[2024-10-12] MEDS: Lidocaine 2% (5ml sdv) 5 ML VIAL.MPF INFILT (09:57)
[2024-10-12] MEDS: Lidocaine 1% (5 ml sdv) 5 ML Vial 3 ML OPERA.SITE (10:05)
[2024-10-12] MEDS: Betamethasone/Betamethasone 30 MG/5 ML Vial 6 MG INTRAARTIC (10:05)
--- NOTE | 2024-10-12 10:08 | PCM.OPRPT ---
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 Schneider INDICATION: Male, 64 years old. Hip pain, right. PROVIDER: OSCAR Pedro FLUOROSCOPY TIME: 1 minute / 25 seconds. 31.9 mGy CONSENT: The risks, benefits, and alternatives to the procedure were explained to the patient. The specific risks of bleeding, infection, and neurovascular injury were detailed and accepted. The patient held his clopidogrel for 5 days preprocedure. Witnessed informed consent was obtained. TECHNIQUE: The right hip access site was prepped with chlorhexidine and draped in sterile fashion. 2% Lidocaine was administered subcutaneously for local anesthesia. A 22-gauge spinal needle was positioned under radiographic fluoroscopic localization. Approximately 2 cc of Isovue 300 instilled for localization purposes. Medication was then injected. MEDICATIONS: 1 mL of Betamethasone and 3 ml of 1% lidocaine. The spinal needle was removed, and a dressing was applied. The patient tolerated the procedure well without any immediate complications. The procedure was proctored by interventional radiologist Dr. Masterson. IMPRESSION: Successful fluoroscopic guided right hip injection. Surgical Findings: None Complications Complications: No
== END | disposition home or self-care (01) ==
PROVIDERS: PCP Family Medicine; Referring Provider Specialist; Visit Provider Specialist
DX: M16.11 Unilateral primary osteoarthritis, right hip (principal); M25.551 Pain in right hip
CPT/HCPCS: 20610; 77002; J0702

== ENCOUNTER → 2025-04-15 | Outpatient (CLI) | payer MEDICARE, OTHER, SELFPAY ==
--- NOTE | 2025-04-15 08:57 | BI_ITS ---
EXAM: DIAG MAMM W/CAD, BILAT N/A CLINICAL HISTORY: M, Age 64 y/o , BREAST TENDERNESS. Patient has been taking a medicine for his arthritis. TECHNIQUE: Procedure Code: [id number] Modality: MG Procedure: DIAG MAMM W/CAD, BILAT. COMPARISON: None. FINDINGS: TISSUE DENSITY: The breasts are almost entirely fatty. Bilateral Breast Mammographic Findings: There is increased density seen heterogeneously and diffusely throughout the right breast. This most likely correlates to the tenderness the patient is experiencing. It may represent gynecomastia however, further workup with ultrasound will be performed for further evaluation. No suspicious masses, suspicious cluster of microcalcifications, architectural distortion or secondary sign of malignancy is identified in the left breast. The left breast is primarily fatty replaced. BI/DIAG MAMM W/CAD, BILAT IMPRESSION: There is increased density seen heterogeneously and diffusely throughout the ri ght breast. This most likely correlates to the tenderness the patient is experiencing. It may represent gynecomastia however, further workup with ultrasound will be performed for further evaluation. OVERALL FINAL ASSESSMENT BI-RADS 0: INCOMPLETE - NEED ADDITIONAL IMAGING EVALUATION. RECOMMENDATION: Ultrasound Recommended Additional Recommendation none A letter with findings and recommendations will be mailed to the patient. Reading Location: [id number]
--- NOTE | 2025-04-15 09:55 | US_ITS ---
PROCEDURE: BREAST LIMITED UNILATERAL 04/15/2025 REASON FOR EXAM: M, Age 64 y/o , RT BREAST PAIN COMPARISON: Mammogram dated 04/15/2025. TECHNIQUE: Procedure Code: USBRSTLIMIT Modality: US Procedure: BREAST LIMITED UNILATERAL FINDINGS: There is echogenic glandular tissue identified in the right breast retroareolar region extending laterally into the breast correlating to the area of tenderness. This correlates to the increased density seen in the right breast on the mammogram study. No suspicious solid masses or cystic masses are noted. There is no ultrasound abnormality seen to suggest malignancy. The left breast was scanned for comparison purposes. No suspicious solid or cystic masses are seen in the left breast. US/Breast Limited Unilateral IMPRESSION: The echogenic breast tissue in the left breast, correlating to the area of tend erness and area of increased density seen on the mammogram study, most likely represents gynecomastia. Short-term six-month fol low-up mammogram and ultrasound should be performed to document stability. BI-RADS 3: PROBABLY BENIGN. RECOMMENDATION: Six-month Reading Location: [id number]
== END | disposition home or self-care (01) ==
LOC: OPBI 08:56
PROVIDERS: PCP Family Medicine; Referring Provider Family Medicine; Visit Provider Family Medicine
DX: N64.4 Mastodynia (principal)
CPT/HCPCS: 76642; 77062; 77066; G0279